=== PATIENT | female | born 1980 | race Caucasian/White ===

== ENCOUNTER 2016-11-28 21:56 | Emergency (ER) | payer MEDICAID ==
[2016-11-28 22:13] VITALS: TEMP 97.5; O2SAT 97
--- NOTE | 2016-11-28 23:48 | EDPHY ---
H & P Time Seen by Provider: 11/28/16 22:58 HPI/ROS: CHIEF COMPLAINT: Right ankle pain HISTORY OF PRESENT ILLNESS: This otherwise healthy 36-year-old female, presents to the emergency department after an inversion ankle injury. The patient complains of pain to the lateral ankle and swelling. The patient has no other complaints, denies numbness or tingling to affected limb. Smoking Status: Former smoker Physical Exam: General appearance: alert no distress Right ankle: There is swelling and tenderness over the lateral ankle. TTP to ATFL and CFL. There is no tenderness over the achilles tendon. The foot is non-tender without swelling. No TTP over 5th metatarsal. No proximal fibular tenderness. Neurologic exam: The patient has normal sensation and motor function distal to the injury. Vascular exam: Normal pulses and capillary refill in the foot Constitutional: Initial Vital Signs Temperature (C) 36.4 C 11/28/16 22:09 Heart Rate 65 11/28/16 22:09 Respiratory Rate 18 11/28/16 22:09 Blood Pressure 118/69 11/28/16 22:09 O2 Sat (%) 97 11/28/16 22:09 O2 Delivery Mode Room Air Allergies/Adverse Reactions: Sulfa (Sulfonamide Antibiotics) Allergy (Verified 11/28/16 22:09) Home Medications: Medication Instructions Recorded NK [No Known Home Meds] 11/28/16 MDM/Departure - MDM Imaging Results: Right ankle x-ray independently reviewed by me, no fracture Imaging: I viewed and interpreted images myself - Depart Disposition: Home, Routine, Self-Care Clinical Impression: Right ankle sprain Qualifiers: Encounter type: initial encounter Involved ligament of ankle: calcaneofibular ligament Qualified Code(s): S93.411A - Sprain of calcaneofibular ligament of right ankle, initial encounter Condition: Good Instructions: Ankle Sprain (ED) Additional Instructions: Rest, ice, elevate, take 600 mg of ibuprofen every 8 hours with food for 3-5 days as needed for pain. Use crutches for weight-bearing as tolerated. This image your pain allows start your ankle stabilizing exercises. Follow up with orthopedist for pain that is not improving in the next 10-14 days. Stand Alone Forms: Work Excuse Referrals: Imer Reese MD [Medical Doctor] - As per Instructions (Orthopedist on-call)
[2016-11-29 00:01] VITALS: BP 123/63; PULSE 64; RESP 14
== END 2016-11-29 00:01 | disposition home or self-care (01) ==
DX: S93.411A Sprain of calcaneofibular ligament of right ankle, initial encounter (principal); Z87.891 Personal history of nicotine dependence; X58.XXXA Exposure to other specified factors, initial encounter
CPT/HCPCS: L4350

== ENCOUNTER 2017-01-04 11:21 | Emergency (ER) | payer MEDICAID ==
[2017-01-04 11:37] VITALS: RESP 18
--- NOTE | 2017-01-04 14:11 | EDPHY ---
HPI/HX/ROS/PE/MDM Narrative: CHIEF COMPLAINT: Pelvic pain. HISTORY OF PRESENT ILLNESS: This patient is a 36 year old female complaining of pelvic pain onset this morning. She states she has had mild pelvic pain for a while, and has history of ovarian cysts. Last night, she started menstrual cycle and had cramping which she describes as normal. This morning, she developed more severe pelvic pain with associated nausea. She has not taken any medications for pain relief. She denies abnormal vaginal bleeding between cycles. No fever, chills, chest pain, shortness of breath, palpitations, vomiting, diarrhea, constipation, urinary complaints, headache, lightheadedness. REVIEW OF SYSTEMS: Aside from elements discussed in the HPI, a comprehensive 10-point review of systems was reviewed and is negative. PAST MEDICAL HISTORY: A5. Tubal ligation, IVF, Ovarian cysts. SOCIAL HISTORY: Single, lives in [place], has a three year old daughter. VITAL SIGNS: Reviewed by me GENERAL: Well-developed, well-nourished, resting comfortably in no respiratory distress. HEENT: Atraumatic. Eyes: No icterus, no injection. Mouth: moist mucous membranes. No erythema or lesions. Neck: supple with no adenopathy. LUNGS: Clear to auscultation bilaterally, no wheezes, rhonchi or rales. CARDIAC: Regular rate and rhythm, no rubs, murmurs or gallops. ABDOMEN: Left adnexal tenderness. No guardign or rebound. Soft, nondistended, bowel sounds normal. BACK: No CVA tenderness. EXTREMITIES: No trauma. No edema. Range of motion is normal throughout. NEURO: Alert and oriented, grossly nonfocal. SKIN: Warm and dry, no rash. PSYCHIATRIC: Normal mentation, no agitation. Portions of this note were transcribed by a medical advisor. I personally performed a history, physical exam, medical decision making, and confirmed accuracy of information the transcribed note. ED Course: 36 year old female presents with pelvic pain onset this morning. Physical exam reveals left lower quadrant/ adnexal tenderness. Plan for labs including CBC, BMP, BHCG, UA. Plan for US pelvis. Plan to administer 30mg IV Toradol and 4mg IV Zofran for symptom relief. BCHG negative. Labs unremarkable. 15:[address] Alvarez, radiologist. Normal US pelvis. Discussed results with patient. Feeling improved following her toradol. u nderstands need to follow up with [facility]. No evidence on ED evaluation of significant ovarian or abdominal pathology requiring further testing or admission to hospital. Will dc with symptomatic control. Plan to discharge home in good condition. She will follow up with her primary care provider or [facility] for further evaluation. Return precautions discussed. The patient is comfortable with this plan. MDM: The differential diagnosis for the patient's abdominal pain was considered including but not limited to ovarian cyst, pelvic inflammatory disease, ovarian torsion, urinary tract infection, related complications, and constipation. - Data Points Imaging Results: Pelvic ultrasound: Impression: Normal pelvic ultrasound. Findings discussed with justin Leonard for Jodee Sanchez M.D. on January 04, 2017 at 1510. Imaging: Discussed imaging studies w/ manager style Radiologist Laboratory Results: Laboratory Results 01/04/17 14:35 01/04/17 14:35 Medications Given: Discontinued Medications Sodium Chloride (Ns) 1,000 mls @ 0 mls/hr IV EDNOW ONE; Wide Open PRN Reason: Protocol Stop: 01/04/17 14:23 Last Admin: 01/04/17 14:39 Dose: 1,000 mls Ketorolac Tromethamine (Toradol) 30 mg IVP EDNOW ONE Stop: 01/04/17 15:36 Last Admin: 01/04/17 15:38 Dose: 30 mg Ondansetron HCl (Zofran) 4 mg IVP EDNOW ONE Stop: 01/04/17 14:23 Last Admin: 01/04/17 14:39 Dose: Not Given General Time Seen by Provider: 01/04/17 13:44 Initial Vital Signs: Initial Vital Signs Temperature (C) 36.8 C 01/04/17 11:34 Heart Rate 66 01/04/17 11:34 Respiratory Rate 18 01/04/17 11:34 Blood Pressure 108/60 01/04/17 11:34 O2 Sat (%) 97 01/04/17 11:34 O2 Delivery Mode Room Air Allergies/Adverse Reactions: Sulfa (Sulfonamide Antibiotics) Allergy (Intermediate, Verified 01/04/17 11:34) Hives Home Medications: Medication Instructions Recorded Indomethacin [Indocin 25 mg (*)] 25 mg PO TID PRN #20 cap 01/04/17 Departure - Departure Disposition: Home, Routine, Self-Care Clinical Impression: Pelvic pain Condition: Good Instructions: Pelvic Pain in Women (ED) Additional Instructions: I suggested you take indomethacin 25 mg by mouth 3 times a day to help with the pelvic pain. This has good anti-inflammatory, pain relief, as well as anti prostatiglandin effects. Please follow up with your primary care physician as soon as possible. You have also been given referral to a OBGYN physician for further evaluation. Return to the emergency department or seek care urgently if you develop fever, vomiting, worsening pain despite the above measures, or other concerns. Referrals: NONE *PRIMARY CARE P,. [Primary Care Provider] - As per Instructions Kimmie Arriaga MD [Medical Doctor] - As per Instructions Andria Colin MD [Medical Doctor] - As per Instructions Prescriptions: Indomethacin [Indocin 25 mg (*)] 25 mg PO TID PRN #20 cap PRN Reason: pain
[2017-01-04] MEDS ORDERED: NS 1,000 ML IV ONE (14:22)
[2017-01-04] MEDS ORDERED: ONDANSETRON 4 MG/2 ML VIAL IVP ONE (14:22)
[2017-01-04 14:47] LABS: % IMMATURE GRANULYOCYTES 0.2 % (0.0-1.1); ABSOLUTE IMMATURE GRANULOCYTES 0.02 10^3/uL (0.00-0.10); ADD DIFF? NO; ADD MORPH? NO; ADD SCAN? NO; ATYPICAL LYMPHOCYTE FLAG 10 (0-99); FRAGMENT RBC FLAG 0 (0-99); HEMATOCRIT 40.5 % (38.0-47.0); HEMOGLOBIN 13.6 g/dL (12.6-16.3); LEFT SHIFT FLG 0 (0-99); LIPEMIA HEMOLYSIS FLAG 80 (0-99); MEAN CELL HEMOGLOBIN 30.1 pg (27.9-34.1); MEAN CELL HEMOGLOBIN CONCENTR. 33.6 g/dL (32.4-36.7); MEAN CELL VOLUME 89.6 fL (81.5-99.8); MEAN PLATELET VOLUME 10.2 fL (8.7-11.7); PLATELET CLUMPS FLAG 0 (0-99); PLATELET COUNT 240 10^3/uL (150-400); RED BLOOD CELL COUNT 4.52 10^6/uL (4.18-5.33); RED CELL DISTRIBUTION WIDTH 13.2 % (11.5-15.2)
[2017-01-04 15:01] LABS: ANION GAP 12 mEq/L (8-16); CALCIUM 9.5 mg/dL (8.5-10.4); CARBON DIOXIDE 23 mEq/l (22-31); CHLORIDE 104 mEq/L (97-110); CREATININE 0.8 mg/dL (0.6-1.0); GLOMERULAR FILTRATION RATE > 60; GLUCOSE 97 mg/dL (70-100); SODIUM 139 mEq/L (134-144)
[2017-01-04] MEDS ORDERED: KETOROLAC 30 MG/1 ML SDV IVP ONE (15:35)
[2017-01-04 15:41] VITALS: TEMP 97.9; O2SAT 95
[2017-01-04 15:57] LABS: COLOR YELLOW; LEUKOCYTE ESTERASE,URINE 1+ (NEGATIVE); NITRITE,URINE NEGATIVE (NEGATIVE)
[2017-01-04 16:06] LABS: MUCUS TRACE /lpf (NONE-1+); RBC,URINE 50-182 /hpf (0-3); WBC,URINE 25-50 /hpf (0-3)
[2017-01-04 17:00] VITALS: BP 120/64; PULSE 61
== END 2017-01-04 17:00 | disposition home or self-care (01) ==
DX: R10.2 Pelvic and perineal pain (principal); E86.9 Volume depletion, unspecified
CPT/HCPCS: 96374; J1885; J2405